=== PATIENT | female | born 1995 ===

== ENCOUNTER 2017-05-29 15:38 | Emergency (ER) | payer BC ==
[2017-05-29 15:50] VITALS: BP 140/59; PULSE 80; RESP 16; TEMP 97.8; O2SAT 100
--- NOTE | 2017-05-29 16:56 | ED PDOC ---
HPI: CCC, URI, Sore Throat Time Seen by Provider: 05/29/17 15:53 Chief Complaint (Nursing): Shortness Of Breath Chief Complaint (Provider): Left sided throat pain x 1 week History Per: Patient History/Exam Limitations: no limitations Onset/Duration Of Symptoms: Days Current Symptoms Are (Timing): Still Present Location Of Pain: Throat Sick Contacts (Context): None Associated Symptoms: Sore Throat. denies: Fever, Chills, Cough, Sputum, Neck Pain, Sinus Drainage, Myalgias, Nasal Congestion, Nausea Ear Symptoms: Bilateral: None Additional Complaint(s): Pt states it was worse at work today and she felt like she couldn't swallow or breath due to her throat pain. Pt states she has intermittently taken motrin for the pain. Pt states she has not had similar in the past. PT denies chest pain or SOB. Past Medical History Reviewed: Historical Data, Nursing Documentation, Vital Signs Vital Signs: Last Vital Signs Temp 97.8 F 05/29/17 15:48 Pulse 80 05/29/17 15:48 Resp 16 05/29/17 15:48 BP 140/59 L 05/29/17 15:48 Pulse Ox 100 05/29/17 16:57 - Medical History PMH: Hypercholesterolemia - Surgical History Surgical History: No Surg Hx - Family History Family History: States: No Known Family Hx - Living Arrangements Living Arrangements: With Family - Social History Current smoker - smoking cessation education provided: No Alcohol: Occasional Drugs: Denies - Home Medications Home Medications: Ambulatory Orders Medication Instructions Recorded Metronidazole [Flagyl] 500 mg PO BID #14 tab 10/19/14 Famotidine [Pepcid] 20 mg PO BID PRN #30 tab 02/29/16 Fexofenadine/Pseudoephedrine 1 each PO BID #12 tab.er.12h 05/29/17 [Gladys-D 12 Hour Tablet] - Allergies Allergies/Adverse Reactions: Allergies Allergy/AdvReac Type Severity Reaction Status Date / Time No Known Allergies Allergy Unverified 05/29/17 15:47 Review of Systems ROS Statement: Except As Marked, All Systems Reviewed And Found Negative Constitutional: Negative for: Fever, Chills, Sweats ENT: Positive for: Throat Pain Cardiovascular: Negative for: Chest Pain Respiratory: Negative for: Cough, Shortness of Breath Physical Exam - Reviewed Nursing Documentation Reviewed: Yes Vital Signs Reviewed: Yes - Physical Exam Appears: Positive for: Well, Non-toxic, No Acute Distress Head Exam: Positive for: ATRAUMATIC, NORMAL INSPECTION, NORMOCEPHALIC Skin: Positive for: Normal Color, Warm, DRY Eye Exam: Positive for: Normal appearance ENT: Positive for: Normal ENT Inspection, Other (Uvula midline ). Negative for : Pharyngeal Erythema, Tonsillar Exudate, Tonsillar Swelling Neck: Positive for: Normal, Painless ROM Cardiovascular/Chest: Positive for: Regular Rate, Rhythm Respiratory: Positive for: CNT, Normal Breath Sounds Gastrointestinal/Abdominal: Positive for: Normal Exam, Bowel Sounds, Soft Back: Positive for: Normal Inspection Extremity: Positive for: Normal ROM Neurologic/Psych: Positive for: Alert, Oriented - ECG O2 Sat by Pulse Oximetry: 100 Disposition - Clinical Impression Clinical Impression: Throat pain - Patient ED Disposition Is Patient to be Admitted: No Counseled Patient/Family Regarding: Diagnosis, Need For Followup, Rx Given - Disposition Referrals: [facility] [Outside] Disposition: Routine/Home Disposition Time: 18:33 Condition: STABLE Prescriptions: Fexofenadine/Pseudoephedrine [Gladys-D 12 Hour Tablet] 1 each PO BID #12 tab.er.12h Instructions: Pharyngitis (ED)
--- NOTE | 2017-05-29 18:40 | RAD ---
HISTORY: cough COMPARISON: Chest x-ray performed 12/25/13 TECHNIQUE: Chest PA and lateral FINDINGS: LUNGS: No focal consolidation. 7 mm nodular density seen only on lateral view, possibly prominent vessel on end. Please note that chest x-ray has limited sensitivity for the detection of pulmonary masses. PLEURA: No significant pleural effusion identified. No definite pneumothorax . CARDIOVASCULAR: The cardiomediastinal silhouette appears within normal limits of size. OSSEOUS STRUCTURES: No acute osseous abnormality identified. VISUALIZED UPPER ABDOMEN: Unremarkable. OTHER FINDINGS: None. IMPRESSION: No acute findings. 7 mm nodular density seen only on lateral view, possibly prominent vessel on end.
== END 2017-05-29 18:56 | disposition home or self-care (01) ==
LOC: H.ER 15:38
DX: J06.9 Acute upper respiratory infection, unspecified (principal); E78.00 Pure hypercholesterolemia, unspecified
CPT/HCPCS: 71020; 81025; 87070; 87430; 96372; 99281; J1100

== ENCOUNTER 2017-10-25 08:44 | Emergency (ER) | payer BC ==
[2017-10-25 08:50] VITALS: BMI 24.8
[2017-10-25] MEDS ORDERED: Albuterol 0.083% Inhal Sol (2.5 mg/3 mL) UD INH ONE (09:57)
[2017-10-25] MEDS ORDERED: Albuterol 0.083% Inhal Sol (2.5 mg/3 mL) UD ONE (10:01)
--- NOTE | 2017-10-25 10:27 | ED PDOC ---
HPI: General Adult Time Seen by Provider: 10/25/17 09:02 Chief Complaint (Nursing): Cough, Cold, Congestion Chief Complaint (Provider): Cough, Cold, Congestion History Per: Patient History/Exam Limitations: no limitations Onset/Duration Of Symptoms: Days (x 2) Additional Complaint(s): Jessica is a 22 year old female who presents to the emergency department with dry cough and stuffy nose for the past 2 days. Reports decreased appetite, mild nausea and possible sore throat, but denies vomiting and fever. PMD: Daly Rodney Past Medical History Reviewed: Historical Data, Nursing Documentation, Vital Signs Vital Signs: Last Vital Signs Temp 99.6 F 10/25/17 11:20 Pulse 94 H 10/25/17 11:20 Resp 19 10/25/17 11:20 BP 124/65 10/25/17 11:20 Pulse Ox 100 10/25/17 11:20 - Medical History PMH: Hypercholesterolemia - Surgical History Surgical History: No Surg Hx - Family History Family History: States: Unknown Family Hx - Social History Current smoker - smoking cessation education provided: No Alcohol: None Drugs: Denies - Home Medications Home Medications: Ambulatory Orders Medication Instructions Recorded Oseltamivir [Tamiflu] 75 mg PO BID #10 cap 10/25/17 - Allergies Allergies/Adverse Reactions: Allergies Allergy/AdvReac Type Severity Reaction Status Date / Time No Known Allergies Allergy Unverified 10/25/17 09:04 Review of Systems ROS Statement: Except As Marked, All Systems Reviewed And Found Negative Constitutional: Negative for: Fever ENT: Positive for: Throat Pain, Other (Stuffy nose) Respiratory: Positive for: Cough (Dry) Gastrointestinal: Positive for: Nausea (Mild). Negative for: Vomiting Neurological: Positive for: Other (Decreased appetite) Physical Exam - Reviewed Nursing Documentation Reviewed: Yes Vital Signs Reviewed: Yes - Physical Exam Appears: Positive for: Well Head Exam: Positive for: ATRAUMATIC, NORMAL INSPECTION, NORMOCEPHALIC Skin: Positive for: Normal Color Eye Exam: Positive for: Normal appearance ENT: Positive for: Pharyngeal Erythema. Negative for: Tonsillar Swelling Neck: Positive for: Normal Cardiovascular/Chest: Positive for: Regular Rate, Rhythm Respiratory: Positive for: Normal Breath Sounds. Negative for: Respiratory Distress Gastrointestinal/Abdominal: Positive for: Soft Extremity: Positive for: Normal ROM Neurologic/Psych: Positive for: Alert, Oriented (x 3) - ECG O2 Sat by Pulse Oximetry: 97 (RA) Pulse Ox Interpretation: Normal Medical Decision Making Medical Decision Making: Time: 09:55 Plan:fever r/o influenza and strep - Albuterol 0.083% Inhal Sarah (2.5 mg/3ml) UD - Toradol 60 mg IM - Peak Flow Pre/Post Tx - Influenza A B - Rapid Strep Group A Antigen pt is positive for influenza. will give tamiflu and dc home. Scribe Attestation: Documented by Estiven Mariee, acting as a scribe for Rosalind Campa MD Provider Scribe Attestation: All medical record entries made by the Scribe were at my direction and personally dictated by me. I have reviewed the chart and agree that the record accurately reflects my personal performance of the history, physical exam, medical decision making, and the department course for this patient. I have also personally directed, reviewed, and agree with the discharge instructions and disposition. Disposition - Clinical Impression Clinical Impression: Influenza - Patient ED Disposition Is Patient to be Admitted: No Counseled Patient/Family Regarding: Studies Performed, Diagnosis, Need For Followup - Disposition Referrals: [facility] [Outside] [facility] [Outside] Disposition: Routine/Home Disposition Time: 11:00 Condition: IMPROVED Additional Instructions: follow up with your primary doctor in 1-2 days return to the ED with any worsening or concerning symptoms Prescriptions: Oseltamivir [Tamiflu] 75 mg PO BID #10 cap Instructions: Influenza (ED) Forms: [employer] (Sudanese)
[2017-10-25 11:20] VITALS: BP 124/65; PULSE 94; RESP 19; TEMP 99.6
[2017-10-25 15:19] VITALS: O2SAT 97
== END 2017-10-25 11:30 | disposition home or self-care (01) ==
LOC: H.ER 08:44
DX: J11.1 Influenza due to unidentified influenza virus with other respiratory manifestations (principal); E78.00 Pure hypercholesterolemia, unspecified
CPT/HCPCS: 81025; 87070; 87430; 87804; 96372; 99282; J1885

== ENCOUNTER 2017-11-26 20:04 | Emergency (ER) | payer BC ==
[2017-11-26 20:04] VITALS: BMI 24.8
[2017-11-26 21:05] VITALS: BP 112/58; PULSE 86; RESP 18; TEMP 98.4; O2SAT 97
--- NOTE | 2017-11-26 21:17 | ED PDOC ---
HPI: CCC, URI, Sore Throat Time Seen by Provider: 11/26/17 21:10 Chief Complaint (Nursing): Cough, Cold, Congestion Chief Complaint (Provider): Cough, congestion, sore throat History Per: Patient History/Exam Limitations: no limitations Onset/Duration Of Symptoms: Days (x1 week) Current Symptoms Are (Timing): Still Present Additional Complaint(s): 22 year old female patient presents to the emergency department complaining of cough, congestion, and sore throat lasting for 1 week. Also reports right eye redness, irritation, and discharge. Patient has been taking Dayquil and Nyquil without any improvement. Also states she had the flu one month ago. Denies any fever or chills. Took Motrin today. PMD: Dr. Daly Rodney Past Medical History Reviewed: Historical Data, Nursing Documentation, Vital Signs Vital Signs: Last Vital Signs Temp 98.4 F 11/26/17 21:02 Pulse 86 11/26/17 21:02 Resp 18 11/26/17 21:02 BP 112/58 L 11/26/17 21:02 Pulse Ox 97 11/26/17 21:24 - Medical History PMH: Hypercholesterolemia - Surgical History Surgical History: No Surg Hx - Family History Family History: States: Unknown Family Hx - Social History Current smoker - smoking cessation education provided: No Alcohol: None Drugs: Denies - Home Medications Home Medications: Ambulatory Orders Medication Instructions Recorded Oseltamivir [Tamiflu] 75 mg PO BID #10 cap 10/25/17 Erythromycin 0.5% [Ilytocin] 0.5 in RIGHTEYE BID #1 tube 11/26/17 Promethazine/Codeine 5 ml PO Q12 PRN #100 ml 11/26/17 [Codeine/Promethazine 10 MG/5 Ml-6.25 MG/5 Ml] Pseudoephedrine [Sudafed Tab] 60 mg PO Q6 PRN #24 tab 11/26/17 - Allergies Allergies/Adverse Reactions: Allergies Allergy/AdvReac Type Severity Reaction Status Date / Time No Known Allergies Allergy Unverified 11/26/17 21:05 Review of Systems ROS Statement: Except As Marked, All Systems Reviewed And Found Negative Constitutional: Negative for: Fever, Chills Eyes: Positive for: Redness (irritation and discharge) ENT: Positive for: Nose Congestion, Throat Pain (sore throat) Respiratory: Positive for: Cough Physical Exam - Reviewed Nursing Documentation Reviewed: Yes Vital Signs Reviewed: Yes - Physical Exam Appears: Positive for: Well, Non-toxic, No Acute Distress Head Exam: Positive for: ATRAUMATIC, NORMAL INSPECTION, NORMOCEPHALIC Skin: Positive for: Normal Color, Warm, DRY Eye Exam: Positive for: EOMI, PERRL, Conjunctival injection (Mild, right eye), Other (Stringy, mucousy discharge noted to right eye) ENT: Positive for: Normal ENT Inspection. Negative for: Pharyngeal Erythema, Tonsillar Exudate Neck: Positive for: Normal, Painless ROM Cardiovascular/Chest: Positive for: Regular Rate, Rhythm. Negative for: Murmur Respiratory: Positive for: Normal Breath Sounds. Negative for: Accessory Muscle Use, Respiratory Distress Neurologic/Psych: Positive for: Alert, Oriented Comments: No fluorescein uptake on eye exam - ECG O2 Sat by Pulse Oximetry: 97 Medical Decision Making Medical Decision Making: Impression: Viral Illness Patient is medically stable for discharge provided with prescriptions for Sudafed Tab, Codeine/Promethazine, Ilytocin. Instructed patient to follow up with PMD. Provided referral for specialist physicians as well. Scribe Attestation: Documented by Annetta Edmondson, acting as a scribe for Abdiaziz Metz PA-C Provider Scribe Attestation: All medical record entries made by the Scribe were at my direction and personally dictated by me. I have reviewed the chart and agree that the record accurately reflects my personal performance of the history, physical exam, medical decision making, and the department course for this patient. I have also personally directed, reviewed, and agree with the discharge instructions and disposition Disposition - Clinical Impression Clinical Impression: Viral illness - Patient ED Disposition Is Patient to be Admitted: No Counseled Patient/Family Regarding: Diagnosis, Need For Followup, Rx Given - Disposition Referrals: Neftali Awan MD [Staff Provider] - Disposition: Routine/Home Disposition Time: 21:15 Condition: FAIR Prescriptions: Erythromycin 0.5% [Ilytocin] 0.5 in RIGHTEYE BID #1 tube Promethazine/Codeine [Codeine/Promethazine 10 MG/5 Ml-6.25 MG/5 Ml] 5 ml PO Q12 PRN #100 ml PRN Reason: Cough Pseudoephedrine [Sudafed Tab] 60 mg PO Q6 PRN #24 tab PRN Reason: Nasal Congestion Instructions: Viral Syndrome (ED) Forms: [employer] (Trinidadian), [facility] ED School/Work Excuse - POA Present On Arrival: None
== END 2017-11-26 21:39 | disposition home or self-care (01) ==
LOC: H.ER 20:04
DX: B34.9 Viral infection, unspecified (principal)

== ENCOUNTER 2018-01-22 16:38 | Emergency (ER) | payer BC ==
[2018-01-22 16:38] VITALS: BMI 24.8
--- NOTE | 2018-01-22 19:37 | ED PDOC ---
HPI: General Adult Time Seen by Provider: 01/22/18 17:23 Chief Complaint (Nursing): Back Pain History Per: Patient Additional Complaint(s): Pt. states for the past week she's had atraumatic neck pain. States initially pain was in the middle of the back of the neck and now it is localized to the L side of the neck. Pain is worse with movement. Denies sore throat, fever, masses , trauma, throat swelling, SOB. Past Medical History Reviewed: Historical Data, Nursing Documentation, Vital Signs Vital Signs: Last Vital Signs Temp 98 F 01/22/18 19:45 Pulse 76 01/22/18 19:45 Resp 18 01/22/18 19:45 BP 118/71 01/22/18 19:45 Pulse Ox 100 01/22/18 19:45 - Medical History PMH: Hypercholesterolemia - Family History Family History: States: No Known Family Hx - Home Medications Home Medications: Ambulatory Orders Medication Instructions Recorded Oseltamivir [Tamiflu] 75 mg PO BID #10 cap 10/25/17 Erythromycin 0.5% [Ilytocin] 0.5 in RIGHTEYE BID #1 tube 11/26/17 Promethazine/Codeine 5 ml PO Q12 PRN #100 ml 11/26/17 [Codeine/Promethazine 10 MG/5 Ml-6.25 MG/5 Ml] Pseudoephedrine [Sudafed Tab] 60 mg PO Q6 PRN #24 tab 11/26/17 Cyclobenzaprine [Cyclobenzaprine 10 mg PO Q8 PRN #10 tab 01/22/18 HCl] - Allergies Allergies/Adverse Reactions: Allergies Allergy/AdvReac Type Severity Reaction Status Date / Time No Known Allergies Allergy Unverified 01/22/18 16:51 Review of Systems ROS Statement: Except As Marked, All Systems Reviewed And Found Negative Musculoskeletal: Positive for: Neck Pain Physical Exam - Physical Exam Appears: Positive for: Well, Non-toxic, No Acute Distress Head Exam: Positive for: ATRAUMATIC, NORMAL INSPECTION, NORMOCEPHALIC Skin: Positive for: Normal Color, Warm. Negative for: Rash Eye Exam: Positive for: Normal appearance ENT: Positive for: Normal ENT Inspection. Negative for: Pharyngeal Erythema, Tonsillar Exudate, Tonsillar Swelling Neck: Positive for: Normal, Painless ROM Cardiovascular/Chest: Positive for: Regular Rate, Rhythm, Chest Non Tender Respiratory: Positive for: Normal Breath Sounds Back: Positive for: Muscle Spasm (L paracervical spasm). Negative for: L CVA Tenderness, R CVA Tenderness, Vertebral Tenderness (including cervical spine) Extremity: Positive for: Normal ROM, Other (equal deli cook strength b/l) Neurologic/Psych: Positive for: Alert, Oriented. Negative for: Aphasia, Facial Droop - ECG O2 Sat by Pulse Oximetry: 99 - Progress ED Course And Treament: C-spine x-ray: c-spine straightening; no fx Disposition - Clinical Impression Clinical Impression: Neck pain - Patient ED Disposition Is Patient to be Admitted: No - Disposition Referrals: [facility] [Outside] Disposition: Routine/Home Disposition Time: 19:40 Condition: STABLE Prescriptions: Cyclobenzaprine [Cyclobenzaprine HCl] 10 mg PO Q8 PRN #10 tab PRN Reason: Muscle Spasm Instructions: Generalized Neck Pain (DC) Forms: [employer] (Kinyarwanda) Print Language: ETHIOPIAN
[2018-01-22 19:46] VITALS: BP 118/71; PULSE 76; RESP 18; TEMP 98
[2018-01-22 20:33] VITALS: O2SAT 99
--- NOTE | 2018-01-23 08:04 | RAD ---
PROCEDURE: Cervical Spine Radiographs. HISTORY: Pain. COMPARISON: None. FINDINGS: BONES: There is slight reversal of cervical curvature. No fracture. Dens Intact. No destructive bony lesion appreciable. DISC SPACES: Normal. SOFT TISSUES: Normal. No prevertebral soft tissue swelling. OTHER FINDINGS: None. IMPRESSION: Mild reversal of cervical curvature. No fracture, spondylolisthesis or destructive bony lesion appreciated.
== END 2018-01-22 19:46 | disposition home or self-care (01) ==
LOC: H.ER 16:38
DX: M54.2 Cervicalgia (principal); E78.00 Pure hypercholesterolemia, unspecified

== ENCOUNTER 2018-03-11 17:37 | Emergency (ER) | payer BC ==
[2018-03-11 17:37] VITALS: BMI 24.8
[2018-03-11 17:45] VITALS: PULSE 77; RESP 16; TEMP 98.3; O2SAT 100
[2018-03-11] MEDS ORDERED: Lidocaine 5% Patch TD STA (18:08)
--- NOTE | 2018-03-11 18:20 | ED PDOC ---
Upper Extremity Pain/Injury Time Seen by Provider: 03/11/18 17:51 Chief Complaint (Nursing): Upper Extremity Problem/Injury Chief Complaint (Provider): Upper Extremity Problem/Injury History Per: Patient History/Exam Limitations: no limitations Onset/Duration Of Symptoms: Days (x 2 months ) Current Symptoms Are (Timing): Still Present Quality: "Pain" Additional Complaint(s): 23 year old female presents to the ED complaining of neck pain for the last 2 months. Patient was seen at this ED last and discharged with Flexeril. She goes to physical therapy and reports minimal improvement. She reports minimal relief and continues to have anterior neck pain associated with radiation and tingling down right shoulder. Shoulder pain has developed today along with worsened neck pain. Last x-ray was negative at ED. Denies fever and motor weaknesses. PMD: Dr. Daly Rodney MD Past Medical History Reviewed: Historical Data, Nursing Documentation, Vital Signs Vital Signs: Last Vital Signs Temp 98.3 F 03/11/18 17:43 Pulse 77 03/11/18 17:43 Resp 16 03/11/18 17:43 BP Pulse Ox 100 03/11/18 17:43 - Medical History PMH: Hypercholesterolemia - Surgical History Surgical History: No Surg Hx - Family History Family History: States: Unknown Family Hx - Social History Current smoker - smoking cessation education provided: No Ex-Smoker (has not smoked in the last 12 months): No Alcohol: None Drugs: Denies - Home Medications Home Medications: Ambulatory Orders Medication Instructions Recorded Oseltamivir [Tamiflu] 75 mg PO BID #10 cap 10/25/17 Erythromycin 0.5% [Ilytocin] 0.5 in RIGHTEYE BID #1 tube 11/26/17 Promethazine/Codeine 5 ml PO Q12 PRN #100 ml 11/26/17 [Codeine/Promethazine 10 MG/5 Ml-6.25 MG/5 Ml] Pseudoephedrine [Sudafed Tab] 60 mg PO Q6 PRN #24 tab 11/26/17 Cyclobenzaprine [Cyclobenzaprine 10 mg PO Q8 PRN #10 tab 01/22/18 HCl] Lidocaine 5% [Lidoderm] 1 ea TD DAILY PRN #20 patch 03/11/18 - Allergies Allergies/Adverse Reactions: Allergies Allergy/AdvReac Type Severity Reaction Status Date / Time No Known Allergies Allergy Verified 03/11/18 17:41 Review of Systems ROS Statement: Except As Marked, All Systems Reviewed And Found Negative Musculoskeletal: Positive for: Neck Pain (radiating), Shoulder Pain Physical Exam - Reviewed Nursing Documentation Reviewed: Yes Vital Signs Reviewed: Yes - Physical Exam Appears: Positive for: Non-toxic, In Acute Distress (mild painful) Head Exam: Positive for: ATRAUMATIC, NORMOCEPHALIC Skin: Positive for: Warm, Dry Eye Exam: Positive for: EOMI, PERRL Neck: Positive for: Painless ROM (mild diffuse posterior neck tenderness and tenderness along SCM bilaterally; full ROM), Supple, Trachea Midline. Negative for: Decreased ROM Cardiovascular/Chest: Positive for: Regular Rate, Rhythm. Negative for: Other ( carotid bruit audible) Respiratory: Negative for: Accessory Muscle Use, Respiratory Distress Extremity: Positive for: Normal ROM (5/5 strength in bilateral upper extremities ), Other (light touch intact bilaterally) Lymphatic: Negative for: Adenopathy Neurologic/Psych: Positive for: Alert. Negative for: Motor/Sensory Deficits - ECG O2 Sat by Pulse Oximetry: 100 (RA) Pulse Ox Interpretation: Normal Medical Decision Making Medical Decision Making: Time: 18:08 Impression:neck pain with new radiculopathy Initial Plan: --CT cervical spine --Urine preg --Urine dip --Lidoderm 1 ea TD --Toradol 15 mg IM --Tylenol 975 mg PO Time: 19:49 CT Cervical Spine FINDINGS: Vertebrae: Mild kyphotic curvature of the cervical spine. No fracture or subluxation. Discs/spinal canal/neural foramina: No disc protrusion. Short pedicles cause mild spinal canal stenosis at C3-4 through C6-7. No neural foraminal narrowing. Soft tissues: No prevertebral soft tissue swelling is seen. Lung apices: Partially imaged, 3-4 mm nodule without calcification in the central aspect of the right lung apex. 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 No fracture or subluxation. 3-4 mm right apical lung nodule. If there is a history of tobacco use or primary tumor, recommend followup chest CT scan in 12 months. DW pt findings. Pt to follow up w ortho and PMR. Also needs repeat chest imaging for nodule. Scribe Attestation: Documented by Alisha Torrse, acting as a scribe for Valerie Aguirre MD Provider Scribe Attestation: All medical record entries made by the Scribe were at my direction and personally dictated by me. I have reviewed the chart and agree that the record accurately reflects my personal performance of the history, physical exam, medical decision making, and the department course for this patient. I have also personally directed, reviewed, and agree with the discharge instructions and disposition. Disposition - Clinical Impression Clinical Impression: Spinal stenosis in cervical region, Pulmonary nodule Counseled Patient/Family Regarding: Studies Performed, Diagnosis, Need For Followup, Rx Given - Disposition Referrals: Jasiel Ayoub III, MD [Staff Provider] - Carlos Molina MD [Staff Provider] - Daly Rdoney [Family Provider] - () Disposition: Routine/Home Disposition Time: 20:06 Condition: GOOD Additional Instructions: MAKE FOLLOW UP APPOINTMENTS WITH SPECIALISTS THIS WEEK. YOU MAY NEED TO SEE YOUR PRIMARY CARE PHYSICIAN FIRST. Prescriptions: Lidocaine 5% [Lidoderm] 1 ea TD DAILY PRN #20 patch PRN Reason: PAIN Instructions: Spinal Stenosis, Pulmonary Nodule Forms: [employer] (Citizen Of [place])
[2018-03-11] MEDS ORDERED: Lidocaine 5% Patch TD ONE (18:21)
[2018-03-11 20:16] VITALS: BP 125/80
--- NOTE | 2018-03-12 09:33 | CT ---
PROCEDURE: CT Cervical Spine without contrast HISTORY: neck pain COMPARISON: Cervical spine radiographs 01/22/2018. TECHNIQUE: Axial computed tomography images were obtained of the cervical spine without the use of intravenous contrast. Coronal and sagittal reformatted images were created and reviewed. Radiation dose: Total exam DLP = 299.12 mGy-cm. This CT exam was performed using one or more of the following dose reduction techniques: Automated exposure control, adjustment of the mA and/or kV according to patient size, and/or use of iterative reconstruction technique. FINDINGS: VERTEBRAE: Stable mild reversal of cervical curvature appreciate without fracture or spondylolisthesis identified. No destructive bony lesion appreciable. Prevertebral paraspinal soft tissues appear diffusely unremarkable as well as the posterior elements. Vertebral bodies appear normal in height as well as intervertebral disc spaces. DISCS/SPINAL CANAL/NEURAL FORAMINA: No significant central canal or neural foraminal stenosis. Discs heights are grossly preserved. PARASPINAL SOFT TISSUES: As above. OTHER FINDINGS: For malleolar right apical pulmonary nodule, noncalcified. IMPRESSION: Minimal reversal the cervical curvature. No interval fracture or spondylolisthesis appreciable grossly. No significant disc height loss. Follow-up MRI or CT are available if clinically warranted. 4 mm solid, noncalcified nodule right pulmonary apex for which follow-up chest CT is advised in 12 months to demonstrate stability.
== END 2018-03-11 20:16 | disposition home or self-care (01) ==
LOC: H.ER 17:37
DX: M48.02 Spinal stenosis, cervical region (principal); R91.1 Solitary pulmonary nodule; E78.00 Pure hypercholesterolemia, unspecified
CPT/HCPCS: 72125; 81025; 96372; 99283; J1885

== ENCOUNTER 2018-08-14 11:51 | Emergency (ER) | payer BC ==
[2018-08-14 11:51] VITALS: BMI 24.8
[2018-08-14 12:05] VITALS: BP 108/63; PULSE 83; RESP 20; TEMP 99.2; O2SAT 99
--- NOTE | 2018-08-14 13:00 | ED PDOC ---
HPI: Influenza Time Seen by Provider: 08/14/18 12:34 Chief Complaint: Cough, Cold, Congestion Chief Complaint (Provider): Cough, Cold, Congestion History Per: Patient Exam Limitations: no limitations Onset/Duration Of Symptoms: Days (x1 week ago ) Symptoms include: cough. denies: fever, headache, sore throat, chest pain, rash, other (shortness of breath, facial pain, visual changes ) Additional complaint(s):: Jessica Vaughn is a 23 year old female with a past medical history of diabetes, who presents to the emergency department complaining of having a hoarse voice, white discharge from eyes, and difficulty opening both her eyes. She further states that she has had a cough, onset x1 week ago, that has been resolving. Patient states she has been using Mucinex but denies having any fever, chest pain, shortness of breath, rash, headache, facial pain, visual changes, sore throat, or any contact lens use. PMD: Daly Rodney Past Medical History Reviewed: Historical Data, Nursing Documentation, Vital Signs Vital Signs: Last Vital Signs Temp 99.2 F 08/14/18 12:02 Pulse 83 08/14/18 12:02 Resp 20 08/14/18 12:02 BP 108/63 08/14/18 12:02 Pulse Ox 99 08/14/18 12:02 - Medical History PMH: Diabetes, Hypercholesterolemia - Surgical History Surgical History: No Surg Hx - Family History Family History: States: Unknown Family Hx - Home Medications Home Medications: Ambulatory Orders Medication Instructions Recorded Oseltamivir [Tamiflu] 75 mg PO BID #10 cap 10/25/17 Erythromycin 0.5% [Ilytocin] 0.5 in RIGHTEYE BID #1 tube 11/26/17 Promethazine/Codeine 5 ml PO Q12 PRN #100 ml 11/26/17 [Codeine/Promethazine 10 MG/5 Ml-6.25 MG/5 Ml] RX: Pseudoephedrine [Sudafed Tab] 60 mg PO Q6 PRN #24 tab 11/26/17 Cyclobenzaprine [Cyclobenzaprine 10 mg PO Q8 PRN #10 tab 01/22/18 HCl] Lidocaine 5% [Lidoderm] 1 ea TD DAILY PRN #20 patch 03/11/18 Polymyxin/Trimethoprim Sulfate 1 drop BOTHEYES Q3 #1 bottle 08/14/18 [Polytrim Ophth Soln] - Allergies Allergies/Adverse Reactions: Allergies Allergy/AdvReac Type Severity Reaction Status Date / Time No Known Allergies Allergy Verified 08/14/18 12:01 Review of Systems ROS Statement: Except As Marked, All Systems Reviewed And Found Negative Constitutional: Negative for: Fever, Other (facial pain) Eyes: Positive for: Other (white discharge/difficulty opening eyes ). Negative for: Vision Change ENT: Positive for: Other (hoarse) Cardiovascular: Negative for: Chest Pain Respiratory: Positive for: Cough. Negative for: Other (sore throat) Skin: Negative for: Rash Neurological: Negative for: Headache Physical Exam - Reviewed Nursing Documentation Reviewed: Yes Vital Signs Reviewed: Yes - Physical Exam Appears: Positive for: Well, No Acute Distress Head Exam: Positive for: ATRAUMATIC, NORMOCEPHALIC Skin: Positive for: Normal Color, Warm, Dry Eye Exam: Positive for: EOMI, PERRL, Conjunctival injection (minimal). Negative for: Periorbital swelling, Periorbital tenderness ENT: Positive for: Normal ENT Inspection. Negative for: Pharyngeal Erythema, Tonsillar Exudate Neck: Positive for: Normal, Painless ROM, Supple Cardiovascular/Chest: Positive for: Regular Rate, Rhythm. Negative for: Murmur Respiratory: Positive for: Normal Breath Sounds. Negative for: Respiratory Distress Gastrointestinal/Abdominal: Positive for: Normal Exam, Bowel Sounds, Soft. Negative for: Tenderness Back: Positive for: Normal Inspection. Negative for: L CVA Tenderness, R CVA Tenderness, Vertebral Tenderness Extremity: Positive for: Normal ROM. Negative for: Tenderness, Deformity, Swelling Neurologic/Psych: Positive for: Alert, Oriented (x3) Medical Decision Making Medical Decision Making: Initial Time: 12:34 Initial Plan: --ED Urine (POC) Pt. requested HCG test. LMP: "end of June going into July." Informed of results and advised to do home test in 2 weeks. Scribe Attestation: Documented by Jb Barrett, acting as a scribe for Drake Johnson Provider Scribe Attestation: All medical record entries made by the Scribe were at my direction and personally dictated by me. I have reviewed the chart and agree that the record accurately reflects my personal performance of the history, physical exam, medical decision making, and the department course for this patient. I have also personally directed, reviewed, and agree with the discharge instructions and disposition. - ECG O2 Sat by Pulse Oximetry: 99 (RA) Pulse Ox Interpretation: Normal Disposition - Clinical Impression Clinical Impression: URI (upper respiratory infection), Conjunctivitis - Patient ED Disposition Is Patient to be Admitted: No - Disposition Referrals: [facility] [Outside] Disposition: Routine/Home Disposition Time: 13:00 Condition: STABLE Additional Instructions: JESSICA VAUGHN, thank you for letting us take care of you today. Your provider was Edilson Lovett III, DO and you were treated for COUGH. The emergency medical care you received today was directed at your acute symptoms. If you were prescribed any medication, please fill it and take as directed. It may take several days for your symptoms to resolve. Return to the Emergency Department if your symptoms worsen, do not improve, or if you have any other problems. Please contact your doctor or call one of the physicians/clinics you have been referred to that are listed on the Patient Visit Information form that is included in your discharge packet. Bring any paperwork you were given at discharge with you along with any medications you are taking to your follow up visit. Our treatment cannot replace ongoing medical care by a primary care provider outside of the emergency department. Thank you for allowing the [facility] team to be part of your care today. If you had an X-Ray or CT scan: A Radiologist will review the ED reading if any change in treatment is needed we will contact you. If you had a blood, urine, or wound culture: It will take several days for the results, if any change in treatment is needed we will contact you. If you had an STI test: It will take 48 hours for the results. Please call after 1 week if you have not heard back. Prescriptions: Polymyxin/Trimethoprim Sulfate [Polytrim Ophth Soln] 1 drop BOTHEYES Q3 #1 bottle Instructions: Viral Upper Respiratory Infection, Adult (DC), Conjunctivitis (Pinkeye) (DC) Forms: [facility] (Venezuelan) Print Language: CROATIAN
--- NOTE | 2018-08-14 13:02 | ED PDOC ---
HPI: Influenza Time Seen by Provider: 08/14/18 12:34 Chief Complaint: Cough, Cold, Congestion Chief Complaint (Provider): Cough, Cold, Congestion History Per: Patient Exam Limitations: no limitations Onset/Duration Of Symptoms: Days (x1 week ago) Symptoms include: cough. denies: fever, headache, sore throat, chest pain, rash, other (visual changes; facial pain) Additional complaint(s):: Jessica Vaughn is a 23 year old female with a past medical history of diabetes, who presents to the emergency department complaining of having a hoarse voice, white discharge from eyes, and difficulty opening both her eyes. She further states that she has had a cough, onset x1 week ago, that has been resolving. Patient states she has been using Mucinex but denies having any fever, chest pain, shortness of breath, rash, headache, facial pain, visual changes, sore throat, or any contact lens use. PMD: Daly Rodney Past Medical History Reviewed: Historical Data, Nursing Documentation, Vital Signs Vital Signs: Last Vital Signs Temp 99.2 F 08/14/18 12:02 Pulse 83 08/14/18 12:02 Resp 20 08/14/18 12:02 BP 108/63 08/14/18 12:02 Pulse Ox 99 08/14/18 12:02 - Medical History PMH: Diabetes, Hypercholesterolemia - Surgical History Surgical History: No Surg Hx - Family History Family History: States: Unknown Family Hx - Home Medications Home Medications: Ambulatory Orders Medication Instructions Recorded Oseltamivir [Tamiflu] 75 mg PO BID #10 cap 10/25/17 Erythromycin 0.5% [Ilytocin] 0.5 in RIGHTEYE BID #1 tube 11/26/17 Promethazine/Codeine 5 ml PO Q12 PRN #100 ml 11/26/17 [Codeine/Promethazine 10 MG/5 Ml-6.25 MG/5 Ml] Pseudoephedrine [Sudafed Tab] 60 mg PO Q6 PRN #24 tab 11/26/17 Cyclobenzaprine [Cyclobenzaprine 10 mg PO Q8 PRN #10 tab 01/22/18 HCl] Lidocaine 5% [Lidoderm] 1 ea TD DAILY PRN #20 patch 03/11/18 Polymyxin/Trimethoprim Sulfate 1 drop BOTHEYES Q3 #1 bottle 08/14/18 [Polytrim Ophth Soln] - Allergies Allergies/Adverse Reactions: Allergies Allergy/AdvReac Type Severity Reaction Status Date / Time No Known Allergies Allergy Verified 08/14/18 12:01 Review of Systems ROS Statement: Except As Marked, All Systems Reviewed And Found Negative Constitutional: Negative for: Fever, Other (facial pain) Eyes: Positive for: Other (white discharge; difficulty opening eyes ). Negative for: Vision Change ENT: Positive for: Other (hoarse) Cardiovascular: Negative for: Chest Pain Respiratory: Positive for: Cough. Negative for: Shortness of Breath, Other ( sore throat) Neurological: Negative for: Headache Physical Exam - Reviewed Nursing Documentation Reviewed: Yes Vital Signs Reviewed: Yes - Physical Exam Appears: Positive for: Well, No Acute Distress Head Exam: Positive for: ATRAUMATIC, NORMOCEPHALIC Skin: Positive for: Normal Color, Warm, Dry Eye Exam: Positive for: EOMI, PERRL, Conjunctival injection (minimal). Negative for: Periorbital swelling, Periorbital tenderness ENT: Positive for: Normal ENT Inspection. Negative for: Pharyngeal Erythema, Tonsillar Exudate Neck: Positive for: Normal, Painless ROM, Supple Cardiovascular/Chest: Positive for: Regular Rate, Rhythm. Negative for: Murmur Respiratory: Positive for: Normal Breath Sounds. Negative for: Respiratory Distress Gastrointestinal/Abdominal: Positive for: Normal Exam, Bowel Sounds, Soft. Negative for: Tenderness Back: Positive for: Normal Inspection. Negative for: L CVA Tenderness, R CVA Tenderness, Vertebral Tenderness Extremity: Positive for: Normal ROM. Negative for: Tenderness, Deformity, Swelling Neurologic/Psych: Positive for: Alert, Oriented (x3) Medical Decision Making Medical Decision Making: Initial Time: 12:34 Initial Plan: --ED Urine (POC) Scribe Attestation: Documented by Jb Barrett, acting as a scribe for Drake Johnson Provider Scribe Attestation: All medical record entries made by the Scribe were at my direction and personally dictated by me. I have reviewed the chart and agree that the record accurately reflects my personal performance of the history, physical exam, medical decision making, and the department course for this patient. I have also personally directed, reviewed, and agree with the discharge instructions and disposition. - ECG O2 Sat by Pulse Oximetry: 99 (RA) Pulse Ox Interpretation: Normal Disposition - Clinical Impression Clinical Impression: URI (upper respiratory infection), Conjunctivitis - Patient ED Disposition Is Patient to be Admitted: No - Disposition Referrals: [facility] [Outside] Disposition: Routine/Home Disposition Time: 13:00 Additional Instructions: JESSICA VAUGHN, thank you for letting us take care of you today. Your provider was Edilson Lovett III, DO and you were treated for COUGH. The emergency medical care you received today was directed at your acute symptoms. If you were prescribed any medication, please fill it and take as directed. It may take several days for your symptoms to resolve. Return to the Emergency Department if your symptoms worsen, do not improve, or if you have any other problems. Please contact your doctor or call one of the physicians/clinics you have been referred to that are listed on the Patient Visit Information form that is included in your discharge packet. Bring any paperwork you were given at discharge with you along with any medications you are taking to your follow up visit. Our treatment cannot replace ongoing medical care by a primary care provider outside of the emergency department. Thank you for allowing the [facility] team to be part of your care today. If you had an X-Ray or CT scan: A Radiologist will review the ED reading if any change in treatment is needed we will contact you. If you had a blood, urine, or wound culture: It will take several days for the results, if any change in treatment is needed we will contact you. If you had an STI test: It will take 48 hours for the results. Please call after 1 week if you have not heard back. Prescriptions: Polymyxin/Trimethoprim Sulfate [Polytrim Ophth Soln] 1 drop BOTHEYES Q3 #1 bottle Instructions: Viral Upper Respiratory Infection, Adult (DC), Conjunctivitis (Pinkeye) (DC) Forms: [facility] (Belgian) Print Language: BELARUSIAN
== END 2018-08-14 13:29 | disposition home or self-care (01) ==
LOC: H.ER 11:51
DX: J06.9 Acute upper respiratory infection, unspecified (principal); H10.9 Unspecified conjunctivitis; E11.9 Type 2 diabetes mellitus without complications; E78.00 Pure hypercholesterolemia, unspecified

== ENCOUNTER 2018-10-19 19:03 | Emergency (ER) | payer BC ==
[2018-10-19 19:03] VITALS: BMI 24.8
[2018-10-19 19:16] VITALS: BP 111/71; PULSE 90; RESP 14; TEMP 97.5; O2SAT 100
--- NOTE | 2018-10-19 19:46 | ED PDOC ---
HPI: Skin/Bite Injury Time Seen by Provider: 10/19/18 19:20 Chief Complaint (Nursing): Bite Chief Complaint (Provider): Redness to right lower leg History Per: Patient History/Exam Limitations: no limitations Current Symptoms Are (Timing): Still Present Location Of Injury: Right: Leg Additional Complaint(s): 23 year old female, with no past medical history, presents to the ED with redness to the right lower leg. On Monday, patient states she scratched her right leg and was not sure if she had been bit. She reports redness has been slowly spreading and redness was more pronounced yesterday. Denies fever, chills, or vomiting. PMD: Daly Lopez Past Medical History Reviewed: Historical Data, Nursing Documentation, Vital Signs Vital Signs: Last Vital Signs Temp 97.5 F L 10/19/18 19:13 Pulse 90 10/19/18 19:13 Resp 14 10/19/18 19:13 BP 111/71 10/19/18 19:13 Pulse Ox 100 10/19/18 19:13 - Medical History PMH: Diabetes, Hypercholesterolemia - Surgical History Surgical History: No Surg Hx - Family History Family History: States: Unknown Family Hx - Home Medications Home Medications: Ambulatory Orders Medication Instructions Recorded Oseltamivir Cap [Tamiflu] 75 mg PO BID #10 cap 10/25/17 Erythromycin 0.5% [Ilytocin] 0.5 in RIGHTEYE BID #1 tube 11/26/17 Promethazine/Codeine 5 ml PO Q12 PRN #100 ml 11/26/17 [Codeine/Promethazine 10 MG/5 Ml-6.25 MG/5 Ml] Pseudoephedrine [Sudafed Tab] 60 mg PO Q6 PRN #24 tab 11/26/17 Cyclobenzaprine [Cyclobenzaprine 10 mg PO Q8 PRN #10 tab 01/22/18 HCl] Lidocaine 5% [Lidoderm] 1 ea TD DAILY PRN #20 patch 03/11/18 Polymyxin/Trimethoprim Sulfate 1 drop BOTHEYES Q3 #1 bottle 08/14/18 [Polytrim Ophth Soln] Sulfamethoxazole/Trimethoprim 1 tab PO BID 10 Days #20 tab 10/19/18 [Bactrim DS 800 mg-160 mg] - Allergies Allergies/Adverse Reactions: Allergies Allergy/AdvReac Type Severity Reaction Status Date / Time No Known Allergies Allergy Verified 10/19/18 19:12 Review of Systems ROS Statement: Except As Marked, All Systems Reviewed And Found Negative Constitutional: Negative for: Fever, Chills Gastrointestinal: Negative for: Vomiting Skin: Positive for: Other (Redness to right lower leg) Physical Exam - Reviewed Nursing Documentation Reviewed: Yes Vital Signs Reviewed: Yes - Physical Exam Appears: Positive for: Non-toxic, No Acute Distress Head Exam: Positive for: ATRAUMATIC, NORMOCEPHALIC Skin: Positive for: Normal Color, Warm, Dry Eye Exam: Positive for: Normal appearance Neck: Positive for: Normal, Painless ROM Extremity: Positive for: Other (Right lower extremity: shows 8 x 10 cm of erythema, warm to the touch, no fluctuance and no streaking) Neurologic/Psych: Positive for: Alert, Oriented. Negative for: Motor/Sensory Deficits - ECG O2 Sat by Pulse Oximetry: 100 (RA) Pulse Ox Interpretation: Normal Medical Decision Making Medical Decision Making: A/P: Very well appearing 23 y/o female presenting with nonpurulent cellulitis Initial Plan: --Motrin 600mg PO 19:43 Patient is not septic. Patient suitable for oral antibiotics and outpatient follow up. Patient is stable for discharge. Return precautions (spreading, fev er, chills, etc.) were discussed. Scribe Attestation: Documented by Bala Chris acting as a scribe for Cecil Wilson MD. Provider Scribe Attestation: All medical record entries made by the Scribe were at my direction and personally dictated by me. I have reviewed the chart and agree that the record accurately reflects my personal performance of the history, physical exam, medical decision making, and the department course for this patient. I have also personally directed, reviewed, and agree with the discharge instructions and disposition. Disposition - Clinical Impression Clinical Impression: Cellulitis - Disposition Referrals: Daly Rodney [Staff Provider] - Disposition: Routine/Home Disposition Time: 19:43 Condition: STABLE Prescriptions: Sulfamethoxazole/Trimethoprim [Bactrim DS 800 mg-160 mg] 1 tab PO BID 10 Days #20 tab Instructions: Cellulitis and Erysipelas (Skin Infections) Forms: [facility] (Salvadorean)
== END 2018-10-19 20:11 | disposition home or self-care (01) ==
LOC: H.ER 19:03
DX: L03.115 Cellulitis of right lower limb (principal); E11.9 Type 2 diabetes mellitus without complications; E78.00 Pure hypercholesterolemia, unspecified

== ENCOUNTER 2018-10-22 13:29 | Emergency (ER) | payer BC ==
[2018-10-22 13:30] VITALS: BMI 24.8
[2018-10-22 14:06] VITALS: BP 125/68; PULSE 91; RESP 18; TEMP 99; O2SAT 99
[2018-10-22] MEDS ORDERED: Tdap Vaccine 0.5 ml Vial (10-64 yrs) IM ONE ×2 (15:41→15:48)
[2018-10-22] MEDS ORDERED: Lidocaine 1% w Epi 1:100,000 Inj IJ STA (15:41)
[2018-10-22] MEDS ORDERED: Lidocaine 1% w Epi 1:100,000 Inj ONE (15:47)
--- NOTE | 2018-10-22 16:38 | ED PDOC ---
Lower Extremity Pain/Injury Time Seen by Provider: 10/22/18 14:10 Chief Complaint (Nursing): Lower Extremity Problem/Injury Chief Complaint (Provider): lower extremity problem History Per: Patient History/Exam Limitations: no limitations Onset/Duration Of Symptoms: Days (2x) Current Symptoms Are (Timing): Still Present Severity: Moderate Additional Complaint(s): 23 year old female with a past medical history of cellulitis presents to the ED for the evaluation of an abscess to the right lower leg. Patient states that she was seen here 3x days ago for cellulitis. Patient was discharged home with antibiotics, and states that an abscess has been forming to the anterior right knee for the past 2x days. Patient states that the redness does not seem to be extending to the rest of her leg. Patient denies having any other complaints. Tetanus not up to date. PMD: Daly Rodney MD Past Medical History Reviewed: Historical Data, Nursing Documentation, Vital Signs Vital Signs: Last Vital Signs Temp 99 F 10/22/18 14:04 Pulse 91 H 10/22/18 14:04 Resp 18 10/22/18 14:04 BP 125/68 10/22/18 14:04 Pulse Ox 99 10/22/18 14:04 - Medical History PMH: Diabetes, Hypercholesterolemia - Surgical History Surgical History: No Surg Hx - Family History Family History: States: No Known Family Hx - Social History Alcohol: None Drugs: Denies - Home Medications Home Medications: Ambulatory Orders Medication Instructions Recorded Oseltamivir Cap [Tamiflu] 75 mg PO BID #10 cap 10/25/17 Erythromycin 0.5% [Ilytocin] 0.5 in RIGHTEYE BID #1 tube 11/26/17 Promethazine/Codeine 5 ml PO Q12 PRN #100 ml 11/26/17 [Codeine/Promethazine 10 MG/5 Ml-6.25 MG/5 Ml] Pseudoephedrine [Sudafed Tab] 60 mg PO Q6 PRN #24 tab 11/26/17 Cyclobenzaprine [Cyclobenzaprine 10 mg PO Q8 PRN #10 tab 01/22/18 HCl] Lidocaine 5% [Lidoderm] 1 ea TD DAILY PRN #20 patch 03/11/18 Polymyxin/Trimethoprim Sulfate 1 drop BOTHEYES Q3 #1 bottle 08/14/18 [Polytrim Ophth Soln] Sulfamethoxazole/Trimethoprim 1 tab PO BID 10 Days #20 tab 10/19/18 [Bactrim DS 800 mg-160 mg] - Allergies Allergies/Adverse Reactions: Allergies Allergy/AdvReac Type Severity Reaction Status Date / Time No Known Allergies Allergy Verified 10/22/18 14:04 Review of Systems ROS Statement: Except As Marked, All Systems Reviewed And Found Negative Skin: Positive for: Other (abscess forming under right knee) Physical Exam - Reviewed Nursing Documentation Reviewed: Yes Vital Signs Reviewed: Yes - Physical Exam Appears: Positive for: Well, Non-toxic, No Acute Distress Head Exam: Positive for: ATRAUMATIC, NORMOCEPHALIC Skin: Positive for: Normal Color, Warm, Dry Extremity: Positive for: Other (abscess noted to anterior right knee) Neurologic/Psych: Positive for: Alert, Oriented (3x) - ECG O2 Sat by Pulse Oximetry: 99 (RA) Pulse Ox Interpretation: Normal Medical Decision Making Medical Decision Makin:10 Initial impression: 23 year old female with an abscess to the right lower extremity. Initial plan: * incision and drainage * adacel (10-64 years) 0.5 ml IM * xylocaine 1% w/ epi 5 ml IJ * wound culture * reevaluation Scribe Attestation: Documented by Ivory Blanco, acting as a scribe for Montserrat Langston PA-C. Provider Scribe Attestation: All medical record entries made by the Scribe were at my direction and personally dictated by me. I have reviewed the chart and agree that the record accurately reflects my personal performance of the history, physical exam, medi esau decision making, and the department course for this patient. I have also personally directed, reviewed, and agree with the discharge instructions and disposition. Procedures - Time-Out Type of Procedure: incision and drainage Site of Procedure: right lower extremity Correct Patient (with visual ID + MR# on ID Band): Yes Correct Procedure: Yes Correct Site Marked: Yes - Incision and Drainage Site: right lower extremity Blade Size: 11 Progress: Using 11 blade. Took wound culture did not pack the wound. Irrigated wound. Wound is 3 cm in diameter. Used 2 ccs lido with epi. Patient showed me a picture of the area from onset of symptoms, erythema does appear to have worsened. Disposition - Clinical Impression Clinical Impression: Abscess - Patient ED Disposition Is Patient to be Admitted: No Counseled Patient/Family Regarding: Diagnosis, Need For Followup - Disposition Disposition: Routine/Home Disposition Time: 16:37 Condition: GOOD Additional Instructions: Warm compresses as often as possible. Continue oral antibiotics. Wound culture pending. Instructions: Skin Abscess Forms: [facility] (Irish), [facility] ED School/Work Excuse
== END 2018-10-22 17:04 | disposition home or self-care (01) ==
LOC: H.ER 13:29
DX: L02.415 Cutaneous abscess of right lower limb (principal); E11.9 Type 2 diabetes mellitus without complications; E78.00 Pure hypercholesterolemia, unspecified; Z23 Encounter for immunization